=== PATIENT | female | born 1980 | race Caucasian/White ===

== ENCOUNTER → 2018-09-25 13:55 | Outpatient (CLI) | payer OTHER, SELFPAY ==
[2018-10-02 10:04] LABS: HPV Reflexed? NOT INDICATED
== END ==
PROVIDERS: Visit Provider Obstetrics & Gynecology
DX: Z12.4 Encounter for screening for malignant neoplasm of cervix (principal)
CPT/HCPCS: 87624; 88175; G0145

== ENCOUNTER → 2023-03-31 | Outpatient (CLI) | payer OTHER, SELFPAY ==
[2023-04-03 09:09] LABS: HPV APTIMA, High Risk Negative (Negative)
== END | disposition home or self-care (01) ==
PROVIDERS: Visit Provider Registered Nurse
DX: Z12.4 Encounter for screening for malignant neoplasm of cervix (principal)
CPT/HCPCS: 87624; 88175; G0145

== ENCOUNTER → 2023-04-10 | Outpatient (CLI) | payer OTHER, SELFPAY ==
--- NOTE | 2023-04-10 13:02 | BI_ITS ---
MAMMOGRAPHY - BILATERAL SCREENING REASON FOR EXAM: Female, 42 years old. Routine annual screening examination. PERTINENT HISTORY: Non-contributory. TECHNIQUE: Digital bilateral breast lucia (3D mammographic acquisition) in the CC and MLO projections. 2-D mediolateral oblique (MLO) and craniocaudad (CC) views of both breasts were obtained. CAD: Full Field Digital Mammography with Computer Added Detection was performed. COMPARISON: Left breast diagnostic mammogram from 06/04/2022. Screening mammogram from 04/10/2022. FINDINGS: Breast Composition: The breasts are heterogeneously dense, which may obscure small masses. There are no dominant masses or suspicious calcifications. No other significant abnormalities are identified. There has been no significant change since the prior study. BI/SCRN MAMM (CAD)W/LUCIA BILAT IMPRESSION: Stable bilateral screening mammogram. Yearly follow-up mammogram recommended. (A) ASSESSMENT CATEGORY: BIRADS Category 1: Negative. A letter regarding these results will be sent to the patient by the facility within 30 days. Approximately 10% of breast cancers are not detected by mammography. A normal mammogram should not delay biopsy of a clinically suspicious abnormality. Electronically Signed: Aquiles Lobo DO at 10:59 EDT ,
[2023-04-10 14:09] LABS: T4 Free Direct 1.11 ng/dL (0.76-1.46); Thyroid Stim Hormone (TSH) 1.93 uIU/mL (0.358-3.74)
== END | disposition home or self-care (01) ==
PROVIDERS: PCP Internal Medicine; Referring Provider Registered Nurse; Visit Provider Registered Nurse
DX: Z12.31 Encounter for screening mammogram for malignant neoplasm of breast (principal); N92.6 Irregular menstruation, unspecified
CPT/HCPCS: 36415; 77063; 77067; 84439; 84443

== ENCOUNTER → 2024-05-05 | Outpatient (CLI) | payer OTHER, SELFPAY ==
--- NOTE | 2024-05-05 07:12 | BI_ITS ---
MAMMOGRAPHY - BILATERAL SCREENING REASON FOR EXAM: Female, 43 years old. Routine annual screening examination. PERTINENT HISTORY: Non-contributory. TECHNIQUE: Digital bilateral breast lucia (3D mammographic acquisition) in the CC and MLO projections. 2-D mediolateral oblique (MLO) and craniocaudad (CC) views of both breasts were obtained. CAD: Full Field Digital Mammography with Computer Added Detection was performed. COMPARISON: Comparison is made with prior study dated April 10, 2023. FINDINGS: Breast Composition: The breasts are heterogeneously dense, which may obscure small masses. There are no dominant masses or suspicious calcifications. No other significant abnormalities are identified. There has been no significant change since the prior study. BI/SCRN MAMM (CAD)W/LUCIA BILAT IMPRESSION: Stable bilateral screening mammogram. Yearly follow-up mammogram recommended. (A) ASSESSMENT CATEGORY: BIRADS Category 1: Negative. A letter regarding these results will be sent to the patient by the facility within 30 days. Approximately 10% of breast cancers are not detected by mammography. A normal mammogram should not delay biopsy of a clinically suspicious abnormality. [id number] Electronically Signed: Donnell Yadav MD at 9:04 EDT ,
== END | disposition home or self-care (01) ==
LOC: OPBI 07:12
PROVIDERS: PCP Internal Medicine; Referring Provider Advanced Practice Midwife; Visit Provider Advanced Practice Midwife
DX: Z12.31 Encounter for screening mammogram for malignant neoplasm of breast (principal)
CPT/HCPCS: 77063; 77067

== ENCOUNTER 2024-09-15 15:56 | Outpatient (RCR) | payer OTHER, SELFPAY ==
--- NOTE | 2024-09-20 08:52 | HP.PTEVAL ---
Patient's Visit Information Visit Information Visit Information: CHERI YORK is a 44 year old F referred to Physical Therapy by AILIN Valerio with a diagnosis of R knee strain. Date of Evaluation: 09/15/24 Physical Therapist: Emile Freeman DPT Visit Plan Frequency: 1x/Week Duration: 4 Weeks Plan: I gave patient knee flexion ROM (heel slides, bike), quad and glute strengthening and HS stretching for HEP. Pt. to trial these exercises on her own for the next few weeks then come back to PT if having issues. Subjective Subjective: Pt. is here today for her initial evaluation with diagnosis of strain of R knee. Pt. reports ~1 week ago getting up out of a chair and felt pain in her knee. Pt. reports over the past week her knee has become much better. She still has some medial posterior soreness at times. She reports being able to walking with some soreness, but most of her pain is with her squatting. This is also improved. Pt. denies N/T, no popping noted. Pt. reports no giving out on her as well. Pt. is hopeful to reduce symptoms in order to get back to all work and recreational activities without limitations. Pain R knee: Pain Intensity (Out of 10): 1 Pain Intensity Range: 0 and 2 Objective Objective: POSTURE: normal, no varus or valgus noted. PALPATION: pt. has some mild tenderness at medial posterior knee, no pain with rest of palpation. NEURO: normal throughout. ROM: L knee 0-0-132deg. R knee 0-0-121deg. Pt. has slight tightness in bilateral HS as well. MMT: Pt. has equal strength between bilateral LEs. Pt. without marked pain in either LE. GAIT: Pt. has fairly normal gait pattern without marked antalgic movements. STAIRS: Normal without increase in knee pain. - sole, -disc, negative all ligament testing, - bounce home test. Pt. overall did well with her testing today. Balance/Special Test Scores Lower Extremity Functional Score: 65 Goals Goal 1:: LTG: Pt. to be I with HEP. Goal Time Frame: 4-6 Weeks Goal 2:: STG: Pt. to be able to complete all work and recreational activities without limitations. Goal Time Frame: 2-4 Weeks Goal 3:: LTG: Pt. to have increased R knee flexion symmetrical to L side. Goal Time Frame: 4-6 Weeks Goal 4:: LTG: Pt. to have no symptoms with all walking. Goal Time Frame: 4-6 Weeks Rehabilitation Potential Physical Therapy Diagnosis: Pt. has signs and symptoms consistent with R knee strain. Pt. is overall doing much better than she was initially. She has good strength. She has a very slight loss of knee flexion in her R knee, but not painful with movements. Pt. has slight hypomobility with R knee flexion. Rehabilitation Potential: Excellent Anticipated Interventions Patient/Client Instruction: Educate patient on: Condition, Plan of Care, Risk Factors and Benefits of Fitness Program For the Purpose of:: To improve decision making, To facilitate caregiver knowledge, To improve self management, To prevent re-injury, To improve ability to perform tasks related to life management and To improve tolerance to ADL's Therapeutic Exercise to Include: Strength training, Power training, Endurance training, Balance training, Postural training, Flexibilty training, Passive ROM and Active ROM For the Purpose of:: To decrease pain, To increase ROM, To improve nutrient delivery to tissue, To increase oxygenation perfusion, To improve muscle performance and motor function and To improve ability to perform ADL's Text: Thank you for the opportunity to evaluate your patient. For Medicare and Medicare HMO plans, please review the plan of care and approve it. It will need to be FAXED BACK to us at [phone] for Medicare purposes. For Medicare only, by signing this I certify the plan of care. Please let me know if there are questions or concerns regarding this plan of care. Physician Signature: Date:
== END 2024-09-15 19:00 | disposition home or self-care (01) ==
LOC: PT 15:56
PROVIDERS: PCP Internal Medicine; Referring Provider Physician Assistant; Visit Provider Physician Assistant
DX: S86.911D Strain of unspecified muscle(s) and tendon(s) at lower leg level, right leg, subsequent encounter (principal); M23.91 Unspecified internal derangement of right knee
CPT/HCPCS: 97161

== ENCOUNTER 2024-09-28 14:21 | Emergency (ER) | payer OTHER, SELFPAY ==
[2024-09-28 14:24] VITALS: BP 146/91; PULSE 99; RESP 18; TEMP 36.8; O2SAT 95; BMI 34.9
[2024-09-28 14:49] VITALS: O2SAT 94
--- NOTE | 2024-09-28 15:20 | ED.VIS.DYS ---
HPI History of Present Illness Chief Complaint: Shortness of Breath Informant: patient Onset/Context/Timing Onset: Yesterday Context: sudden Timing: Continuous Quality: Positive for Dyspnea on exertion and Wheezing Worsened by: Exertion and - (Cold air) Relieved by: Nothing Associated Symptoms cough; Negative for rhinorrhea, post nasal drip, ear pain, fever, sore throat, chills, sweats, clear sputum, white sputum, yellow sputum or green sputum Chest Pain: Positive for None Narrative Narrative: Patient presents with shortness of breath that began yesterday. Patient states she was seen at an outside clinic and was diagnosed with pneumonia. Patient states she was started on Zithromax and albuterol. Patient states that today she was walking around her house and started feeling more short of breath. Patient states that her daughter checked her heart rate and pulse oximeter with her Apple Watch. Patient states that her pulse oximeter was in the mid 80s and her heart rate was in the 140s. Patient states she feels better at this time. Patient admits to a cough but denies any sputum production. Patient states she feels like she has been having some wheezing. Patient states her breathing is worse with exertion and with cold air. Patient states nothing seems to help with it. Patient denies any fevers or chills. Patient denies any chest pain. [facility] Medical History (Updated 09/28/24 @ 18:[address] Ed Lindsey, ) Anxiety Hypertension Internal derangement of right knee Strain of right knee Acute myringitis, left ear Home Medications ?Medication ?Instructions ?Recorded ?Last Taken ?Type lisinopril 10 mg tablet 10 mg PO DAILY 03/31/23 Unknown History cetirizine 10 mg capsule (Zyrtec) 10 mg PO DAILY PRN 04/07/24 Unknown History etonogestrel 0.12 mg-ethinyl 1 vag ring vaginal Q4W #9 ea 04/07/24 Unknown Rx estradiol 0.015 mg/24 hr vaginal ring (NuvaRing) levocetirizine 5 mg tablet (Xyzal) 5 mg PO QPM PRN 04/07/24 Unknown History loratadine 10 mg tablet (Claritin) 10 mg PO DAILY 04/07/24 Unknown History sertraline 25 mg tablet 25 mg PO QDAY 04/07/24 Unknown History albuterol sulfate 90 mcg/actuation inhalation 09/28/24 Unknown History aerosol inhaler azithromycin 250 mg tablet 250 mg PO UD 09/28/24 Unknown History prednisone 20 mg tablet 20 mg PO BID 09/28/24 Unknown History Allergy/AdvReac Type Severity Reaction Status Date / Time Sulfa (Sulfonamide Allergy Mild Rash Verified 09/28/24 14:24 Antibiotics) Family History Other Diabetes Hypertension Surgical History no surgical history no surgical history Social History household members: spouse housing: other details: mobile home number of children: 1 current occupational status: employed current occupation: [employer] pets and animals: Yes pets and animals: cat(s), dog(s) and farm animals sexually active: Yes Smoking Status: Never smoker second hand exposure: Yes alcohol intake: current alcohol intake frequency: a few times a month Alcohol type: wine sammy/adventist: Adventism seatbelt use: always do you feel safe at home: Yes additional social history: - Willem ROS ROS ED Constitutional Constitutional ED: Denies chills or fever(s) Eyes Eyes: Denies blurry vision or change in vision ENT ENT ED: Denies rhinorrhea or sore throat Cardiovascular Cardiovascular: Denies chest pain or palpitations Respiratory/Chest Respiratory/Chest: Reports cough and dyspnea Gastrointestinal Gastrointestinal: Denies nausea or vomiting Genitourinary Genitourinary ED: Denies dysuria or hematuria Musculoskeletal Musculoskeletal: Denies back pain or neck pain Integumentary Reports rash; Denies abscess Neurologic Neurologic: Denies headache(s) or weakness Allergic/Immunologic Allergic/Immunologic ED: Denies mouth swelling or urticaria EXAM Physical Exam Const Vital Signs: 09/28/24 14:24 09/28/24 14:49 09/28/24 15:42 Temperature 98.3 F Temperature Source Oral Pulse Rate 99 91 Respiratory Rate 18 16 Respiratory Effort Non-Labored Short of Breath Respiratory Pattern Normal Normal Blood Pressure 146/91 H Blood Pressure Mean 109 Pulse Ox 95 Oxygen Delivery Method Room Air Room Air 09/28/24 16:12 Temperature Temperature Source Pulse Rate 94 Respiratory Rate 18 Respiratory Effort Respiratory Pattern Blood Pressure 153/80 H Blood Pressure Mean 104 Pulse Ox 96 Oxygen Delivery Method Room Air Positive well nourished General Appearance ED: NAD HEENT Reports moist mucous membranes Neck supple, no meningeal signs and no JVD Resp normal respiratory effort and clear to auscultation bilaterally Cardio regular rate and regular rhythm GI non-tender Palpation: soft Neuro oriented x3, CN's II-XII intact bilaterally and no sensory deficits noted Sensorium / Orientation: alert Motor Exam: strength 5/5 throughout Psych mental status grossly normal Thought Process: normal thought process MDM MDM MDM Narrative Medical decision making narrative: Differential diagnose includes pneumonia, bronchitis, viral upper respiratory infection, and reactive airway disease. Chest x-ray will be obtained to assess for pneumonia and bronchitis. CBC will be obtained to assess for leukocytosis and anemia. Basic metabolic profile will be obtained to assess for electrolyte abnormality and renal function. Lab Data Attestation: I reviewed the patient's lab results. Lab results narrative: CBC was reviewed. There is a mild leukocytosis of 16.4 and a mild thrombocytosis of 580. Basic metabolic profile was reviewed and was essentially within normal limits. Labs: Laboratory Results - last 24 hr 09/28/24 15:45 WBC 16.4 H RBC 5.04 Hgb 14.4 Hct 42.4 MCV 84.1 MCH 28.6 MCHC 34.0 RDW Std Deviation 36.6 RDW Coeff of Rayray 12.1 Plt Count 580 H MPV 8.8 Immature Gran % (Auto) 0.600 Neut % (Auto) 89.0 H Lymph % (Auto) 8.4 L [place] % (Auto) 1.8 Eos % (Auto) 0.0 Baso % (Auto) 0.2 Absolute Neuts (auto) 14.6 H Absolute Lymphs (auto) 1.37 Nucleated RBC % 0 Sodium 138 Potassium 4.3 Chloride 108 H Carbon Dioxide 22.0 Anion Gap 7 BUN 11 Creatinine 0.89 Estim Creat Clear Calc 99.57 Est GFR (MDRD) Af Amer 89 Est GFR (MDRD) Non-Af 74 BUN/Creatinine Ratio 12.4 Glucose 109 H Calcium 9.7 Radiography Chest X-Ray - ED: 2 View, Read by ED Physician, Read by Radiologist, Right Infiltrate and Left Infiltrate Diagnostic Testing: Clinical Impression(s) from Imaging Studies Chest X-Ray 09/28/24 16:10 IMPRESSION: Minor bibasilar interstitial thickening possibly chronic however would recommend correlation with prior studies and follow-up to assess for interval changes Electronically Signed: Luis Aden MD at 16:41 EST Reading Location ID and State: [facility] / [place] Tel , Service support , PA and lateral chest x-ray was obtained. There are 2 views. On my independent interpretation, there is bibasilar interstitial thickening and questionable infiltrate. Bony thorax is normal. There is no cardiomegaly. Radiologist also interpreted the x-rays and agrees. Treatment and Re-Evaluation :: Patient was given a DuoNeb aerosol here. Patient was feeling better on reevaluation. Patient was able to ambulate here in the emergency department and maintain oxygen saturation 95% or better. Patient felt better and wants to go home. Patient was instructed to continue her antibiotics and inhalers as prescribed. Patient was instructed to return if worse in any way. Patient understood and was agreeable with the plan. All questions were answered. Discharge Plan Triage Chief Complaint: Shortness of Breath ED Provider: Ed Lindsey Dx/Rx/DC Orders Clinical Impression: Pneumonia, Hypertension Instructions: ED Pneumonia (Adult) Prescriptions: No Action lisinopril 10 mg tablet 10 mg PO DAILY sertraline 25 mg tablet 25 mg PO QDAY Zyrtec 10 mg capsule 10 mg PO DAILY PRN levocetirizine [Xyzal] 5 mg tablet 5 mg PO QPM PRN loratadine [Claritin] 10 mg tablet 10 mg PO DAILY etonogestrel-ethinyl estradiol [NuvaRing] 0.12-0.015 mg/24 hr ring 1 vag ring vaginal Q4W Qty: 9 4RF Rx Instructions: leave in place for 3 weeks of a 4-week cycle. please dispense 3 months at one time. azithromycin 250 mg tablet 250 mg PO UD prednisone 20 mg tablet 20 mg PO BID albuterol sulfate 90 mcg/actuation HFA aerosol inhaler inhalation Primary Care Provider: Miri Morfin Referrals: Miri Morfin MD [Primary Care Provider] - 5-7 Days Print Language: Arabic Disposition Disposition: Home, Self Care
[2024-09-28] MEDS: Ipratropium/Albuterol Sulfate 3 ML AMPUL.NEB INHALATION (15:41)
[2024-09-28 15:42] VITALS: PULSE 91; RESP 16
--- NOTE | 2024-09-28 16:10 | RAD_ITS ---
STUDY: X-RAY CHEST REASON FOR EXAM: Female, 44 years old. Cough TECHNIQUE: PA and lateral COMPARISON: None. FINDINGS: Minor bibasilar interstitial thickening possibly chronic. No gross infiltration or pulmonary edema.. There is no demonstrated pleural abnormality. Normal size heart. Normal mediastinum and chris. Normal visualized pulmonary arteries. Normal visualized aortic arch and descending thoracic aorta. Normal visualized thoracic spine. Normal visualized ribs, clavicles, and shoulders. There is no demonstrated abnormality of the visualized soft tissue structures of the upper abdomen. RAD/Chest PA and Lateral IMPRESSION: Minor bibasilar interstitial thickening possibly chronic however would recommend correlation with prior studies and follow-up to assess for interval changes Electronically Signed: Luis Aden MD at 16:41 EST ,
[2024-09-28 16:12] VITALS: BP 153/80; PULSE 94; RESP 18; O2SAT 96
[2024-09-28 16:33] LABS: Absolute Lymphocyte Count 1.37 X10^3/uL (0.83-4.51); Absolute Neutrophil Count 14.6 X10^3/uL (2.0-7.7); Basophil# 0.03 X10^3/uL; Basophil% 0.2 % (0-1); Hematocrit 42.4 % (37-47); Hemoglobin 14.4 g/dL (12.0-15.0); Lymphocyte # 1.37 X10^3/ul (0.83-4.51); Lymphocyte % 8.4 % (19-41); Mean Corpuscular Hgb 28.6 pg (27.0-32.0); Mean Corpuscular Volume 84.1 fL (81-99); Mean Platelet Vol. 8.8 fl (6.2-12.0); Monocyte# 0.29 X10^3/uL; Monocyte% 1.8 % (0-10); NRBC Flagged by Analyzer 0 % (0-5); Neutrophil # 14.61 X10^3/uL (2.7-7.7); Platelet Count 580 K/mm3 (150-450); RBC Distribution Width CV 12.1 % (11.6-14.6); RBC Distribution Width SD 36.6 fl (35.1-43.9); Red Blood Count 5.04 M/mm3 (4.2-5.4); White Blood Count 16.4 K/mm3 (4.4-11.0)
[2024-09-28 16:39] LABS: Anion Gap 7 (5-15); BUN 11 mg/dL (7-18); BUN/Creat Ratio 12.4 RATIO (10-20); Calcium,Total 9.7 mg/dL (8.5-10.1); Chloride 108 mmol/L (98-107); Creatinine, Serum 0.89 mg/dL (0.55-1.02); EST Glomerular Filtration Rate 74 mL/min (>60); Est Glom Filt Rate - Afr Amer 89 mL/min (>60); Estimated Creatinine Clearance 99.57 ml/min; Glucose 109 mg/dL (74-106); Potassium 4.3 mmol/L (3.5-5.1); Sodium Level 138 mmol/L (136-145)
[2024-09-28 17:19] VITALS: O2SAT 97
[2024-09-28 18:18] VITALS: BP 139/81; PULSE 82; RESP 18; TEMP 36.8; O2SAT 96
== END 2024-09-28 18:19 | disposition home or self-care (01) ==
PROVIDERS: Emergency Provider Emergency Medicine; PCP Internal Medicine; Visit Provider Emergency Medicine
DX: J18.9 Pneumonia, unspecified organism (principal); I10 Essential (primary) hypertension; Z79.899 Other long term (current) drug therapy
CPT/HCPCS: 71046; 80048; 85025; 94640; 99282